=== PATIENT | male | born 1980 | race Caucasian/White ===

== ENCOUNTER 2021-10-29 09:52 | Emergency (ER) | payer OTHER ==
[2021-10-29] MEDS ORDERED: Lidocaine 1% (PF) 30 ML VIAL ONE (10:45)
[2021-10-29] MEDS ORDERED: Boostrix 0.5 ML (Tdap) VIAL ONE (10:49)
[2021-10-29] MEDS ORDERED: Bacitracin 1 PK ONE (11:51)
== END 2021-10-29 12:06 | disposition home or self-care (01) ==
LOC: MADERS 09:52
DX: S61.311A Laceration without foreign body of left index finger with damage to nail, initial encounter (principal); I10 Essential (primary) hypertension; F17.220 Nicotine dependence, chewing tobacco, uncomplicated; Z23 Encounter for immunization; Z79.899 Other long term (current) drug therapy; W29.8XXA Contact with other powered hand tools and household machinery, initial encounter
CPT/HCPCS: 12002; 90471; 90715; J2001